=== PATIENT | male | born 2005 | race Caucasian/White ===

== ENCOUNTER 2025-03-19 13:16 | Emergency (ER) | payer OTHER ==
[2025-03-19 13:58] VITALS: BP 134/77; PULSE 59; RESP 20; TEMP 98.2; BMI 19.0
[2025-03-19] MEDS ORDERED: ACETAMINOPHEN INJECTION 100 ML ONE (14:33)
[2025-03-19] MEDS: ACETAMINOPHEN 1000 MG/100 ML BAG IVPB ONE (14:34)
[2025-03-19] MEDS: SODIUM CHLORIDE 0.9% 1000 ML INFUS.BAG IV ONE (14:34)
[2025-03-19 14:36] LABS: ABSOLUTE IMMATURE GRANULOCYTES 0.00 x10^3/uL (0.0-0.031); BASOPHILS # 0.03 x10^3/uL (0.01-0.08); EOSINOPHIL % 6.7 % (0.8-7.0); EOSINOPHILS # 0.50 x10^3/uL (0.04-0.54); MCHC 35.1 g/dl (32.3-36.5); MEAN CELL VOLUME 87.5 fl (79.0-92.2); MEAN PLT VOLUME 10.6 fl (9.4-12.4); MONOCYTE # 0.54 x10^3/uL (0.30-0.82); MONOCYTE % 7.3 % (5.3-12.2); RDW 11.8 % (12.0-15.6)
[2025-03-19 14:57] LABS: ALK PHOS 75.0 U/L (45-117); CO2 29.0 mmol/L (21-32); CREATININE 1.1 mg/dl (0.6-1.3); GLUCOSE,RANDOM 87.0 mg/dl (74-106); SGOT/AST 17.0 U/L (15-37); SGPT/ALT 15.0 U/L (7-52); TOT PROT 7.0 g/dl (6.4-8.2)
[2025-03-19 16:49] LABS: HCV DIAGNOSTIC IN-HOUSE W/RFLX NON-REACTIVE (NONREACTIVE)
[2025-03-19 16:50] LABS: HIV INTERPRETATION NEGATIVE (NEGATIVE)
== END 2025-03-19 16:32 | disposition home or self-care (01) ==
LOC: FER 13:16
PROC: 3E033NZ Introduction of Analgesics, Hypnotics, Sedatives into Peripheral Vein, Percutaneous Approach (ICD-10-PCS; principal; 2025-03-19)
DX: R10.31 Right lower quadrant pain (principal); R10.33 Periumbilical pain
CPT/HCPCS: 36415; 74177-TC; 80053; 81003; 85025; 86803; 87086; 87389; 99285-25; Q9967